=== PATIENT | male | born 1985 | race Caucasian/White ===

== ENCOUNTER 2017-02-11 23:35 | Emergency (ER) | payer BC ==
--- NOTE | 2017-02-11 23:46 | Emergency Department Record ---
History of Present Illness - General Chief Complaint: Animal Bite Stated Complaint: LEFT HAND ANIMAL BITE Time Seen by Provider: 02/11/17 23:44 Source: Patient Mode of Arrival: Ambulatory Limitations: No limitations - History of Present Illness Initial Comments: The patient is here due to a dog bite to the L hand which occurred about 35 minutes ago. The dogs were his own and their immun. are UTD. The patient also states his Td is UTD also. MD Complaint: Animal bite Onset/Timin -: Minutes(s) Animal: Dog Description: Household pet Mechanism: Bite Associated Symptoms: Bleeding Treatments Prior to Arrival: Wound dressing(s) - Related Data Patient Tetanus UTD (within 5 yrs): Yes Previous Rx's Medication Instructions Recorded Amoxicillin/Potassium Clav 1 each PO BID #14 tablet 02/12/17 [Augmentin 875Mg/125Mg] Allergies Allergy/AdvReac Type Severity Reaction Status Date / Time No Known Drug Allergies Allergy Verified 02/11/17 23:44 Travel Screening - Travel/Exposure Within Last 30 Days Have you traveled within the last 30 days?: No - Travel/Exposure Within Last Year Have you traveled outside the [place] in the last year?: No - Additonal Travel Details Have you been exposed to anyone with a communicable illness?: No Review of Systems Constitutional: Denies: Chills, Fever Eyes: Denies: Eye discharge ENT: Denies: Congestion Past Medical History - SOCIAL HISTORY Smoking Status: Never smoker Alcohol Use: None Drug Use: None - RESPIRATORY Hx Respiratory Disorders: No - CARDIOVASCULAR Hx Cardio Disorders: No - NEURO Hx Neuro Disorders: No - GI Hx GI Disorders: No - Hx Genitourinary Disorders: No - ENDOCRINE Hx Endocrine Disorders: No - MUSCULOSKELETAL Hx Musculoskeletal Disorders: No - PSYCH Hx Psych Problems: No - HEMATOLOGY/ONCOLOGY Hx Hematology/Oncology Disorders: No Family Medical History Any Significant Family History?: No Physical Exam - General General Appearance: Alert, Oriented x3, Cooperative, No acute distress - Head Head exam: Atraumatic, Normocephalic, Normal inspection - Eye Eye exam: Normal appearance, PERRL - Extremities Extremities exam: Full ROM, Normal capillary refill, Tenderness (There is tenderness around both bites but no swelling or erythema. The L hand is NVI distally.). negative: Normal inspection (There is a PW to the dorsal L hand and a one cm lac between the 4th and 5th digits in the web space dorsally.), Joint swelling Image of Hand: 1 - Less than 1 cm PW. 2 - One cm laceration. Course Vital Signs 02/11/17 23:38 Temperature 98.9 F Pulse Rate 90 Respiratory 20 Rate Blood Pressure 139/95 Pulse Ox 98 - Reevaluation(s) Reevaluation #1: Procedure note: The 2 L hand wounds were cleansed with betadine and anesth. with a total of 2 CC's of Lido 1%. The proximal dorsal hand PW was lavaged with sterile saline and not sutured. The 1.5 cm L hand wound between the 4th and 5th web space was cleansed and lavaged with sterile saline. It was then loosely closed with 2 4.0 nylon sutures. There were no complications. 02/12/17 00:18 Reevaluation #2: I did discuss the high rate of infections with dog bite wounds to the hand. The patient is to return in 2 days for a wound recheck or see his PCP. 02/12/17 00:20 Medical Decision Making - Data Complexity MDM Data: X-Ray Ordered and/or Reviewed - Radiology Data Radiology results: Report reviewed (L Hand: Neg) Disposition Disposition: Discharge Clinical Impression: Dog bite of extremity Disposition: Home, Self-Care Condition: (1) Good Instructions: Animal Bite (ED) Additional Instructions: Please keep the hand clean and dry and either see your PCP or return to the ER for a wound check Monday. Take Tylenol or Motrin for pain and continue the Augmentin. Return to the ER for any increased pain, swelling or fever. Have your suture removed here in 10 days. Prescriptions: Amoxicillin/Potassium Clav [Augmentin 875Mg/125Mg] 1 each PO BID #14 tablet Forms: Patient Portal Access Time of Disposition: 00:17
[2017-02-11] MEDS ORDERED: AMOXICILLIN/POTASSIUM CLAV 875MG/125MG TABLET PO ONE (23:48)
--- NOTE | 2017-02-15 15:06 | RADIOLOGY REPORT ---
EXAM: LEFT HAND HISTORY: PAIN. TECHNIQUE: Three views of the left hand were performed. Comparison: None. Encounter: Initial. FINDINGS: Negative for fracture or dislocation. The soft tissues are unremarkable. The joint spaces are preserved. IMPRESSION: NEGATIVE LET HAND EXAMINATION. JOB NUMBER: [id number] MTDD
== END 2017-02-12 00:37 | disposition home or self-care (01) ==
LOC: ER 23:35
DX: S61.412A Laceration without foreign body of left hand, initial encounter (principal); W54.0XXA Bitten by dog, initial encounter; Y92.009 Unspecified place in unspecified non-institutional (private) residence as the place of occurrence of the external cause
CPT/HCPCS: 12001; 99283

== ENCOUNTER 2018-07-26 03:22 | Emergency (ER) | payer BC ==
--- NOTE | 2018-07-26 03:46 | Emergency Department Record ---
History of Present Illness - General Chief Complaint: Fever Stated Complaint: FEVER Time Seen by Provider: 07/26/18 03:43 Source: Patient Mode of Arrival: Ambulatory Limitations: No limitations - History of Present Illness Initial Comments: 33 yo male presents to ED for evaluation of sore throat and fever symptoms that began yesterday. Patient reports that he was seen in [facility], underwent negative strep testing. Patient reports nonproductive cough symptoms as well. Patient denies abdominal pain or urinary symptoms, denies health problems at his baseline. Patient has been taking Ibuprofen which improves his fever symptoms. MD Complaint: Fever Onset/Timin -: Days(s) Maximum Temperature: 102.7 F Temperature Source: Oral Associated Symptoms: Chills, Cough, Sore throat Treatments Prior to Arrival: Ibuprofen - Related Data Previous Rx's Medication Instructions Recorded Azithromycin [Zithromax] 500 mg PO DAILY #4 tablet 07/26/18 Allergies Allergy/AdvReac Type Severity Reaction Status Date / Time No Known Drug Allergies Allergy Verified 07/26/18 03:31 Travel Screening - Travel/Exposure Within Last 30 Days Have you traveled within the last 30 days?: No - Travel Symptoms Symptom Screening: None Review of Systems Constitutional: Reports: Chills, Fever, Malaise. Denies: Night sweats Eyes: Denies: Eye discharge, Eye pain ENT: Reports: Throat pain. Denies: Congestion, Ear pain, Epistaxis Respiratory: Denies: Cough, Dyspnea Cardiovascular: Denies: Chest pain, Dyspnea on exertion Endocrine: Denies: Fatigue, Heat or cold intolerance Gastrointestinal: Denies: Abdominal pain, Nausea, Vomiting Genitourinary: Denies: Incontinence, Retention Musculoskeletal: Denies: Arthralgia, Back pain, Gout, Joint swelling Skin: Denies: Bruising, Change in color Neurological: Denies: Abnormal gait, Confusion, Headache, Seizure Psychiatric: Denies: Anxiety Hematological/Lymphatic: Denies: Anemia, Blood Clots Past Medical History - SOCIAL HISTORY Smoking Status: Never smoker - RESPIRATORY Hx Respiratory Disorders: No - CARDIOVASCULAR Hx Cardio Disorders: No - NEURO Hx Neuro Disorders: No - GI Hx GI Disorders: No - Hx Genitourinary Disorders: No - ENDOCRINE Hx Endocrine Disorders: No - MUSCULOSKELETAL Hx Musculoskeletal Disorders: No - PSYCH Hx Psych Problems: No - HEMATOLOGY/ONCOLOGY Hx Hematology/Oncology Disorders: No Family Medical History Any Significant Family History?: Yes Hx Heart Disease: Grandparents Physical Exam - General General Appearance: Alert, Oriented x3, Cooperative, Mild distress Limitations: No limitations - Head Head exam: Atraumatic, Normocephalic, Normal inspection Head exam detail: negative: Abrasion, Contusion, Lombardi's sign, General tenderness, Hematoma, Laceration - Eye Eye exam: Normal appearance. negative: Conjunctival injection, Periorbital swelling, Periorbital tenderness, Scleral icterus - ENT Ear exam: negative: Auricular hematoma, Auricular trauma Nasal Exam: negative: Active bleeding, Discharge, Dried blood, Foreign body Mouth exam: negative: Drooling, Laceration, Muffled voice, Tongue elevation Throat exam: negative: Tonsillar erythema, Tonsillomegaly, Tonsillar exudate, R peritonsillar mass, L peritonsillar mass - Neck Neck exam: Normal inspection. negative: Meningismus, Tenderness - Respiratory Respiratory exam: Normal lung sounds bilaterally. negative: Rales, Respiratory distress, Rhonchi, Stridor - Cardiovascular Cardiovascular Exam: Regular rate, Normal rhythm, Normal heart sounds - GI/Abdominal GI/Abdominal exam: Soft. negative: Rebound, Rigid, Tenderness - Rectal Rectal exam: Deferred - exam: Deferred - Extremities Extremities exam: Normal inspection. negative: Calf tenderness, Pedal edema, Tenderness - Back Back exam: Denies: CVA tenderness (R), CVA tenderness (L) - Neurological Neurological exam: Alert, Normal gait, Oriented X3 - Psychiatric Psychiatric exam: Normal affect, Normal mood - Skin Skin exam: Normal color. negative: Abrasion Type of lesion: negative: abrasion Course Vital Signs 07/26/18 03:28 Temperature 100.1 F H Pulse Rate [ 110 H Pulse Ox Probe] Respiratory 20 Rate Blood Pressure 140/81 [Left Arm] Pulse Ox 95 - Reevaluation(s) Reevaluation #1: 07/26/18 03:49 Patient reports "I need something for my fever symptoms". Pharynx appears normal on examination without exudates or lymphadenopathy, will initiate treatment with Zithromax as directed for 5 days for his URI symptoms ( likely viral however). Abdomen is non-tender on examination as well. Patient appears stable for discharge at this time, Disposition Disposition: Discharge Clinical Impression: URI (upper respiratory infection) Qualifiers: URI type: unspecified URI Qualified Code(s): J06.9 - Acute upper respiratory infection, unspecified Fever Qualifiers: Fever type: unspecified Qualified Code(s): R50.9 - Fever, unspecified Disposition: Home, Self-Care Condition: (2) Stable Instructions: Fever in Adults (ED) Additional Instructions: Return to ED if your symptoms worsen or if you have any concerns. Zithromax as directed. Follow-up with your family doctor in 3-5 days as directed. Prescriptions: Azithromycin [Zithromax] 500 mg PO DAILY #4 tablet Forms: Patient Portal Access Time of Disposition: 03:45 Quality - Quality Measures Quality Measures: N/A - Blood Pressure Screening Does Patient Have Any of the Following: No Blood Pressure Classification: Pre-Hypertensive BP Reading Systolic Measurement: 140 Diastolic Measurement: 81 Screening for High Blood Pressure: < Pre-Hypertensive BP, F/U Documented > [ G8950] Pre-Hypertensive Follow-up Interventions: Referral to alternative/primary care provider.
[2018-07-26] MEDS: ACETAMINOPHEN 500 MG TABLET PO ONE (03:50)
[2018-07-26] MEDS: AZITHROMYCIN 500 MG TABLET PO ONE (03:50)
== END 2018-07-26 03:57 | disposition home or self-care (01) ==
LOC: ER 03:22
DX: J02.9 Acute pharyngitis, unspecified (principal); R50.81 Fever presenting with conditions classified elsewhere
CPT/HCPCS: 99282

== ENCOUNTER 2018-11-03 20:00 | Emergency (ER) | payer BC ==
[2018-11-03] MEDS ORDERED: HYOSCYAMINE SULFATE ODT 0.125 MG TAB.SUBL SL ONE (20:29)
[2018-11-03] MEDS ORDERED: ONDANSETRON HCL IV 4 MG/2 ML VIAL IVP ONE (20:29)
[2018-11-03] MEDS ORDERED: 0.9 % SODIUM CHLORIDE 1000ML 1,000 ML IV SCH ×2 (20:30→21:00)
--- NOTE | 2018-11-03 20:32 | Emergency Department Record ---
History of Present Illness - General Chief complaint: Vomiting Stated complaint: VOMITING,LIGHTHEADED/COLD Time Seen by Provider: 11/03/18 20:16 Source: Patient Mode of Arrival: Ambulatory Limitations: No limitations - History of Present Illness Initial comments: 33 yo male presents to ED for evaluation of nausea/vomiting and loose stools for the past 24 hours. Patient denies fevers, denies recent dietary change, and denies health problems at his baseline. Patient does report that his son was recently diagnosed with strep pharyngitis. Patient denies previous abdominal surgery. MD complaint: Diarrhea, Nausea, Vomiting Onset/Timin -: Days(s) Associated Abdominal Pain: Yes Location: Diffuse Severity scale (1-10): 8 Quality: Sharp Consistency: Intermittent Improves with: None Worsens with: None Associated Symptoms: Fever/chills - Related Data Previous Rx's Medication Instructions Recorded Hyoscyamine Sulfate [Levsin-Sl] 0.25 mg SL Q8H PRN #15 tab.subl 11/03/18 Ondansetron [Zofran Odt] 4 mg PO Q8H PRN #15 tab.rapdis 11/03/18 Allergies Allergy/AdvReac Type Severity Reaction Status Date / Time No Known Drug Allergies Allergy Verified 07/26/18 03:31 Travel Screening - Travel/Exposure Within Last 30 Days Have you traveled within the last 30 days?: No - Travel Symptoms Symptom Screening: None Review of Systems Constitutional: Denies: Chills, Fever, Malaise, Night sweats Eyes: Denies: Eye discharge, Eye pain ENT: Denies: Congestion, Ear pain, Epistaxis Respiratory: Denies: Cough Cardiovascular: Denies: Chest pain, Dyspnea on exertion Endocrine: Reports: Fatigue. Denies: Heat or cold intolerance Gastrointestinal: Reports: Diarrhea, Nausea, Vomiting Genitourinary: Denies: Incontinence, Retention Musculoskeletal: Denies: Arthralgia, Back pain Skin: Denies: Bruising, Change in color Neurological: Denies: Abnormal gait, Seizure Psychiatric: Denies: Anxiety Hematological/Lymphatic: Denies: Anemia, Blood Clots Past Medical History - SOCIAL HISTORY Smoking Status: Never smoker - RESPIRATORY Hx Respiratory Disorders: No - CARDIOVASCULAR Hx Cardio Disorders: No - NEURO Hx Neuro Disorders: No - GI Hx GI Disorders: No - Hx Genitourinary Disorders: No - ENDOCRINE Hx Endocrine Disorders: No - MUSCULOSKELETAL Hx Musculoskeletal Disorders: No - PSYCH Hx Psych Problems: No - HEMATOLOGY/ONCOLOGY Hx Hematology/Oncology Disorders: No Family Medical History Any Significant Family History?: Yes Hx Heart Disease: Grandparents Physical Exam - General General Appearance: Alert, Oriented x3, Cooperative, Mild distress Limitations: No limitations - Head Head exam: Atraumatic, Normocephalic, Normal inspection Head exam detail: negative: Abrasion, Contusion, Lombardi's sign, General tenderness, Hematoma, Laceration - Eye Eye exam: Normal appearance. negative: Conjunctival injection, Periorbital swelling, Periorbital tenderness, Scleral icterus - ENT Ear exam: negative: Auricular hematoma, Auricular trauma Nasal Exam: negative: Active bleeding, Discharge, Dried blood, Foreign body Mouth exam: negative: Drooling, Laceration, Muffled voice, Tongue elevation - Neck Neck exam: Normal inspection. negative: Meningismus, Tenderness - Respiratory Respiratory exam: Normal lung sounds bilaterally. negative: Rales, Respiratory distress, Rhonchi, Stridor - Cardiovascular Cardiovascular Exam: Regular rate, Normal rhythm, Normal heart sounds - GI/Abdominal GI/Abdominal exam: Soft, Tenderness (Mild, diffuse TTP, no rebound or guarding symptoms are present on examination.). negative: Rebound, Rigid - Rectal Rectal exam: Deferred - exam: Deferred - Extremities Extremities exam: Normal inspection. negative: Pedal edema, Tenderness - Back Back exam: Denies: CVA tenderness (R), CVA tenderness (L) - Neurological Neurological exam: Alert, Normal gait, Oriented X3 - Psychiatric Psychiatric exam: Normal affect, Normal mood - Skin Skin exam: Normal color. negative: Abrasion Type of lesion: negative: abrasion Course Vital Signs 11/03/18 20:14 Temperature 97.4 F L Pulse Rate 105 H Respiratory 24 Rate Blood Pressure 135/97 Pulse Ox 98 - Reevaluation(s) Reevaluation #1: 11/03/18 21:00 Laboratory studies were reviewed: WBC 13.5 Hgb 18.1 (c/w dehydration) CO2 21 AG 18 Creatinine 1.3 Will initiate 2nd Liter of NS and reassess. Reevaluation #2: 11/03/18 21:43 CT Abdomen and Pelvis: Fluid-filled loops of bowel Finding favor infectious gastroenteritis. Reevaluation #3: 11/03/18 22:04 Patient reassessed, reports continued abdominal pain/cramping. Toradol ordered, 2nd liter NS infusing. Discussed antibiotics with the patient for his CT imaging findings, patient declined as symptoms are likely viral in etiology. Will reassess in 30 minutes. Reevaluation #4: 11/03/18 22:32 Patient was reassessed, reports improvement in his body ache symptoms. Patient's 2nd liter has completed infusion as well. Patient appears stable for discharge with symptomatic treatment as discussed. Medical Decision Making - Lab Data Result diagrams: 11/03/18 20:25 11/03/18 20:25 Disposition Disposition: Discharge Clinical Impression: Nausea vomiting and diarrhea Disposition: Home, Self-Care Condition: (2) Stable Instructions: Acute Nausea and Vomiting (ED) Additional Instructions: Return to ED if your symptoms worsen or if you have any concerns. Zofran and Levsin as directed. Follow-up with your family doctor in 1-3 days as directed. Prescriptions: Hyoscyamine Sulfate [Levsin-Sl] 0.25 mg SL Q8H PRN #15 tab.subl PRN Reason: Abdominal Pain Ondansetron [Zofran Odt] 4 mg PO Q8H PRN #15 tab.rapdis PRN Reason: Nausea/Vomiting Forms: Patient Portal Access Time of Disposition: 22:06 Quality - Quality Measures Quality Measures: N/A - Blood Pressure Screening Does Patient Have Any of the Following: No Blood Pressure Classification: Hypertensive Reading Systolic Measurement: 135 Diastolic Measurement: 97 Screening for High Blood Pressure: < First Hypertensive BP, F/U Documented > [ G8950] First Hypertensive Follow-up Interventions: Referral to alternative/primary care provider.
[2018-11-03 20:36] LABS: BASO % 0.2 % (0-6); EOS % 1.8 % (0-6); HEMATOCRIT 49.5 % (42.0-52.0); HEMOGLOBIN 18.1 gm/dl (14.0-18.0); MEAN CELL VOLUME 84.6 fl (81-97); MEAN CORPUSCULAR HEMOGLOBIN 30.9 pg (27-33); MEAN CORPUSCULAR HGB CONC 36.6 g/dl (32-36); MEAN PLATELET VOLUME 9.7 fl (7.4-10.4); MONO % 4.1 % (0-9); PLATELET COUNT 373 K/uL (130-400); RED BLOOD COUNT 5.85 M/uL (4.40-5.70); RED CELL DISTRIBUTION WIDTH 12.2 % (11.5-14.5); WHITE BLOOD COUNT W/O DIFF 13.5 K/uL (4.2-12.2)
[2018-11-03 20:46] LABS: BLOOD UREA NITROGEN 17 mg/dL (6-20); CREATININE 1.3 mg/dL (0.7-1.2); EST GLOMERULAR FILTRATION RATE > 60 mL/min; TOTAL PROTEIN 8.4 g/dL (6.6-8.7)
[2018-11-03 20:48] LABS: GLUCOSE,RANDOM 131 mg/dL (74-109)
[2018-11-03 20:51] LABS: ALB/GLOB RATIO 1.7 (1.1-1.8); ALBUMIN 5.3 g/dL (4.0-5.0); ALKALINE PHOSPHATASE 89 U/L (40-129); ALT/SGPT 62 U/L (<41); AST/SGOT 34 U/L (10.0-50.0); LIPASE 25 U/L (13-60)
[2018-11-03] MEDS ORDERED: KETOROLAC 30 MG/ML VIAL IVP ONE (21:51)
--- NOTE | 2018-11-05 14:53 | CT SCAN REPORT ---
EXAM: CT SCAN OF THE ABDOMEN AND PELVIS WITH CONTRAST HISTORY: MID ABDOMINAL PAIN FOR THE PAST DAY WITH VOMITING. TECHNIQUE: Standard CT imaging of the abdomen and pelvis was performed with contrast. 100 ml of Omnipaque 300 were administered. Comparison: None. FINDINGS: There is a 3 mm subpleural nodule within the left lower lobe on image number 29 of 202. The lung bases are otherwise clear. There is mild hepatic steatosis. There are no focal hepatic abnormalities. The gallbladder is unremarkable. There is no biliary ductal dilatation. The pancreas is normal. The spleen is mildly enlarged measuring 13.5 cm in maximal dimension. There are no focal abnormalities. The adrenal glands are normal. The kidneys and ureters are unremarkable. The aorta is normal in caliber. There is no retroperitoneal lymphadenopathy. The colon is fluid filled throughout. There are no focal inflammatory changes. There is mild wall thickening of the distal ileal loops with no significant surrounding inflammatory change. There is fat deposition within the silva of the distal ileum and ascending colon suggesting areas of previous inflammation. The small bowel loops are nondistended. The stomach is filled with air and fluid. There are no associated inflammatory changes. This pattern overall suggests gastroenteritis. There is no pneumoperitoneum or ascites. The urinary bladder and prostate gland are normal. The abdominal wall is unremarkable. There are no acute osseous abnormalities. IMPRESSION: 1. FLUID IS PRESENT WITHIN THE GI SYSTEM FROM THE STOMACH THROUGH THE RECTUM WITH MILD WALL THICKENING OF SEVERAL ILEAL LOOPS. THE APPEARANCE FAVORS INFECTIOUS GASTROENTERITIS. 2. MILD HEPATIC STEATOSIS. 3. NORMAL APPENDIX. JOB NUMBER: [id number] MTDD
== END 2018-11-03 23:00 | disposition home or self-care (01) ==
LOC: ER 20:00
DX: R11.2 Nausea with vomiting, unspecified (principal); R19.7 Diarrhea, unspecified; R10.84 Generalized abdominal pain; R42 Dizziness and giddiness
CPT/HCPCS: 99284 ×2; 96374; 96375; 96361; 83690; 80053; 85027; 74177; Q9967; J1980; J1885; J2405; J7030